=== PATIENT | female | born 1985 | race African-American/Black ===

== ENCOUNTER 2017-11-12 13:25 | Emergency (ER) | payer OTHER ==
[2017-11-12 13:39] VITALS: BP 125/82; PULSE 87; RESP 20; TEMP 100.8
--- NOTE | 2017-11-12 13:57 | ED ---
General Adult HPI - General Chief complaint: Fever Stated complaint: headache/congestion Time Seen by Provider: 11/12/17 13:47 Source: patient, RN notes reviewed Mode of arrival: ambulatory Limitations: no limitations - History of Present Illness Initial comments: Patient is a 32-year-old female who presents emergency room today with a chief complaint of cough congestion over the last 5 days. She doesn't body aches with fevers. Does admit to a sore throat. Does admit to increased rhinorrhea. She states that some the symptoms were present with her kids last week she's got the symptoms the last few days. Patient denies any other complaints. Patient denies any recent shortness of breath, chest pain, back pain, abdominal pain, nausea or vomiting, numbness or tingling, visual changes, or any other complaints. - Related Data Home Medications Medication Instructions Recorded Confirmed Acetaminophen Tab [Tylenol] 1,000 mg PO Q6H PRN 04/09/16 04/09/16 Famotidine [Pepcid AC] 10 mg PO DAILY PRN 04/09/16 04/09/16 Previous Rx's Medication Instructions Recorded Cephalexin [Keflex] 500 mg PO Q8HR #21 cap 04/09/16 Azithromycin [Zithromax Z-pack] 0 mg PO DIRECTED #6 tab 11/12/17 Allergies Allergy/AdvReac Type Severity Reaction Status Date / Time No Known Allergies Allergy Verified 11/12/17 13:39 Review of Systems ROS Statement: Those systems with pertinent positive or pertinent negative responses have been documented in the HPI. ROS Other: All systems not noted in ROS Statement are negative. Past Medical History Past Medical History: No Reported History Additional Past Medical History / Comment(s): mono History of Any Multi-Drug Resistant Organisms: None Reported Past Surgical History: Section Past Psychological History: Depression Smoking Status: Current every day smoker Past Alcohol Use History: Occasional Past Drug Use History: Marijuana General Exam - General Exam Comments Initial Comments: General: The patient is awake and alert, in no distress, and does not appear acutely ill. Eye: Pupils are equal, round and reactive to light, extra-ocular movements are intact. No nystagmus. There is normal conjunctiva bilaterally. No signs of icterus. Ears, nose, mouth and throat: There are moist mucous membranes and no oral lesions. Decreased bony landmarks on the left ear canal. Worse over the [place]. There is no substantial sinuses or frontal and maxillary. Increased redness to the posterior pharynx. Neck: The neck is supple, there is no tenderness or JVD. Cardiovascular: There is a regular rate and rhythm. No murmur, rub or gallop is appreciated. Respiratory: Lungs are clear to auscultation, respirations are non-labored, breath sounds are equal. No wheezes, stridor, rales, or rhonchi. Musculoskeletal: Normal ROM, no tenderness. Strength 5/5. Sensation intact. Pulses equal bilaterally 2+. Neurological: A&O x 3. CN II-XII intact, There are no obvious motor or sensory deficits. Coordination appears grossly intact. Speech is normal. Skin: Skin is warm and dry and no rashes or lesions are noted. Psychiatric: Cooperative, appropriate mood & affect, normal judgment. Limitations: no limitations Course Vital Signs 11/12/17 13:36 Temperature 100.8 F H Pulse Rate 87 Respiratory 20 Rate Blood Pressure 125/82 O2 Sat by Pulse 97 Oximetry Medical Decision Making - Medical Decision Making Patient does have low-grade fevers advised he is tall/Motrin for aches and pains. Was discussed with patient about possibility of influenza at this time she is outside the treatment range for Tamiflu. Patient does have possible early otitis media with sinus infection. Will be started on antibiotics cover for bacterial infection. Does have ALLERGY to penicillin. Will be given a prescription for azithromycin. Disposition Clinical Impression: Acute sinusitis Disposition: HOME SELF-CARE Condition: Good Instructions: Sinusitis (ED) Additional Instructions: Please use medication as discussed. Please follow-up with family doctor in the next 2 days of symptoms have not improved. Please return to emergency room if the symptoms increase or worsen or for any other concerns. Prescriptions: Azithromycin [Zithromax Z-pack] 0 mg PO DIRECTED #6 tab Referrals: Viet Domingo MD [Primary Care Provider] - 1-2 days Time of Disposition: 13:56
== END 2017-11-12 14:05 | disposition home or self-care (01) ==
LOC: EC 13:25
DX: J01.90 Acute sinusitis, unspecified (principal); F17.200 Nicotine dependence, unspecified, uncomplicated
CPT/HCPCS: 87081; 87430; 87502; 99283

== ENCOUNTER → 2018-02-28 | Outpatient (CLI) | payer OTHER ==
--- NOTE | 2018-02-28 15:31 | CT ---
EXAMINATION TYPE: CT abdomen pelvis w con DATE OF EXAM: 02/28/2018 HISTORY: RLQ and right sided back pain CT DLP: 781.3mGycm Automated Exposure Control for Dose Reduction was Utilized. CONTRAST: CT scan of the abdomen and pelvis is performed with IV Contrast, patient injected with 100 mL of Isov ue 300. COMPARISON: Pelvic ultrasound August 19, 2015 FINDINGS: LUNG BASES: No significant abnormality is appreciated. LIVER/GB: Somewhat contracted gallbladder is seen. PANCREAS: No significant abnormality is seen. SPLEEN: No significant abnormality is seen. ADRENALS: No significant abnormality is seen. KIDNEYS: No significant abnormality is seen. Bowel: Oral contrast does not reach colonic level. There is no suspicious small or large bowel dilata tion. Normal-appearing appendix is seen best coronal image 41 in 42 extending medially from cecum. Ev aluation of distal bowel is suboptimal due to lack of enteric contrast. Suspect bowel spasm causing n arrowing of sigmoid colon axial image 70 as well as poor distention of bowel in the left upper quadra nt near splenic flexure. UTERUS/ADNEXA: Anteverted uterus is present. There is abnormal left ovarian/adnexal mass measuring 2. 3 x 2.1 cm axial image 74 that has fat and soft tissue density with some inferior calcification noted coronal image 56. Some scattered pelvic phleboliths are seen. Right ovary is normal in size. There i s rim hyperdense or enhancing 1.6 cm lesion felt to reflect corpus luteal cyst from recent ovulation axial image 72. LYMPH NODES: No greater than 1cm abdominal or pelvic lymph nodes are appreciated. OSSEOUS STRUCTURES: No significant abnormality is seen. OTHER: There is moderate size umbilical hernia containing fat and tiny mesenteric vessels. IMPRESSION: 1. No significant acute finding is seen to account for patient's clinical symptoms of right lower isha drant and right-sided pain into back. 2. Note is made of new 2.3 cm left ovarian mass with CT imaging characteristics consistent with terat burak. Gynecology oncology referral advised.
== END ==
LOC: RADCTMAIN 13:06
PROVIDERS: ATTEND Family Medicine
DX: N83.9 Noninflammatory disorder of ovary, fallopian tube and broad ligament, unspecified (principal); R10.30 Lower abdominal pain, unspecified; Z88.5 Allergy status to narcotic agent
CPT/HCPCS: 74177; Q9967

== ENCOUNTER → 2024-06-19 | Outpatient (CLI) | payer MEDICARE ==
--- NOTE | 2024-06-28 14:10 | MM ---
Reason for Exam: Screening (asymptomatic). Baseline mammogram. Patient History: Menarche at age 9. First Full-Term at age 14. Premenopausal. Maternal aunt had ovarian cancer. Maternal aunt had ovarian cancer. Last menstrual period: 06/05/2024 Risk Values: Ruma 5 year model risk: 0.6%. NCI Lifetime model risk: 9.6%. Prior Study Comparison: Patient's first Mammogram. Tissue Density: The breasts are heterogeneously dense, which may obscure small masses. Findings: Analyzed By CAD. The pattern is asymmetrically with greater parenchymal tissue on the right compared to the left. There may be a small nodule with medial anterior right breast. Additional workup with ultrasound recommended. This measures 0.5 cm and is 3 cm from the nipple. No suspicious groups of microcalcifications, spiculated or lobular masses, architectural distortion or other secondary signs of malignancy are mammographically apparent. Overall Assessment: Incomplete: need additional imaging evaluation, BI-RAD 0 Management: Diagnostic Breast Ultrasound of the right breast. A negative mammogram report should not preclude additional follow up of suspicious palpable abnormalities. Patient should continue monthly self breast exam. A clinical breast exam by your physician is recommended on an annual basis and results should be correlated with mammographic findings. Note on Ruma scores and lifetime risk: 1. A Ruma score greater than 3% is considered moderate risk. If this is the case, consider specialist referral to assess eligibility for a risk reducing agent. 2. If overall lifetime risk for the development of breast cancer is 20% or higher, the patient may qualify for future screening with alternating mammogram and breast MRI. [facility], , 06/28/2024 2:07 PM. Electronically signed and approved by: Panchito Carolina D.O. Radiologis
== END | disposition home or self-care (01) ==
LOC: RADMAMWWP 12:29
PROVIDERS: ATTEND Family Medicine
CPT/HCPCS: 77067

== ENCOUNTER → 2024-09-03 | Outpatient (CLI) | payer MEDICARE ==
--- NOTE | 2024-09-03 14:01 | CT ---
EXAMINATION TYPE: CT chest wo/w con CT DLP: 742.8 mGycm, Automated exposure control for dose reduction was used. DATE OF EXAM: 09/03/2024 1:44 PM COMPARISON: CT abdomen pelvis 02/28/2018 CLINICAL INDICATION:Female, 39 years old with history of R06.02 SOB R05.3 COUGH; PHH, COUGH TECHNIQUE: Multiple axial images were obtained through the chest before and after the uneventful admi nistration of 100 mL of Isovue-370 intravenously . Coronal and sagittal reformats reviewed. FINDINGS: LUNGS/ PLEURA: No effusion, pneumothorax, or focal consolidation. No suspicious pulmonary nodule or m ass. Minimal bilateral apical paraseptal emphysematous change. AIRWAY: Patent and unremarkable.. HEART: Size within normal limits.No pericardial effusion. MEDIASTINUM: No evidence of adenopathy. VASCULATURE: No aortic aneurysm. MUSCULOSKELETAL: No acute osseous abnormalities SOFT TISSUES/LYMPH NODES: Unremarkable. LOWER NECK: No significant findings. UPPER ABDOMEN: Tiny hiatal hernia. Left renal upper pole partially exophytic 2.1 cm cyst. IMPRESSION: 1. No CT evidence for acute thoracic process. 2. Minimal biapical paraseptal emphysematous change. [facility], , 09/03/2024 1:59 PM
== END | disposition home or self-care (01) ==
LOC: RADCTMAIN 13:15
PROVIDERS: ATTEND Family Medicine
DX: R06.02 Shortness of breath (principal); R05.3 Chronic cough; K44.9 Diaphragmatic hernia without obstruction or gangrene
CPT/HCPCS: 71270; Q9967

== ENCOUNTER 2024-10-04 11:40 | Inpatient (IN) | payer MEDICARE ==
--- NOTE | 2024-10-04 12:05 | ED ---
Abdominal Pain HPI - General Stated Complaint: HERNIA Time Seen by Provider: 10/04/24 12:04 Source: patient, RN notes reviewed Mode of arrival: ambulatory Limitations: no limitations - History of Present Illness Initial Comments: Patient is a 39-year-old female presented the ER for evaluation of abdominal pain. Patient states she has a known hernia in the area of concern and has been evaluated at [facility] for this. She was told this is benign and as long as she can continue to reduce this it can be worked up outpatient. Patient states for the past month she has had a persistent cough. She has been seen by PCP and prescribed steroids, Tessalon Perles, azithromycin without improvement. She also has been using [id number] DayQuil, NyQuil and Robit ussin without relief of her cough. Patient reports when she gets a coughing fit the hernia will protrude and enlarge she is typically able to reduce this on her own but since Saturday has been unable to do so. This has been causing her extreme pain and she is also noted bruising to the overlying skin. Patient admits to flatulence and normal bowel movements. She does report yesterday her stool was "loose". She admits to nausea and vomiting but states this is believed to be from pain. No fevers. No history of bowel resections or surgeries. - Related Data Home Medications Medication Instructions Recorded Confirmed Pantoprazole [Protonix] 40 mg PO DAILY 10/04/24 10/04/24 hydrOXYzine HCL [Atarax] 25 mg PO TID PRN 10/04/24 10/04/24 Allergies Allergy/AdvReac Type Severity Reaction Status Date / Time Penicillins Allergy Unknown Verified 10/04/24 16:38 Review of Systems ROS Statement: Those systems with pertinent positive or pertinent negative responses have been documented in the HPI. ROS Other: All systems not noted in ROS Statement are negative. Past Medical History Past Medical History: No Reported History Additional Past Medical History / Comment(s): mono History of Any Multi-Drug Resistant Organisms: None Reported Past Surgical History: Section Past Psychological History: Depression Past Alcohol Use History: Occasional Past Drug Use History: Marijuana General Exam - General Exam Comments Initial Comments: Visual Physical Exam Vital signs reviewed General: Well-appearing, nontoxic, no acute distress. Head: Normocephalic, atraumatic Eyes: PERRLA, EOMI ENT: Airway patent Chest: Nonlabored breathing Skin: No visual rash, normal skin tone Neuro: Alert and oriented 3 Musculoskeletal: No gross abnormalities Limitations: no limitations General appearance: alert, in no apparent distress Respiratory exam: Present: normal lung sounds bilaterally. Absent: respiratory distress, wheezes, rales, rhonchi, stridor Cardiovascular Exam: Present: regular rate, normal rhythm, normal heart sounds. Absent: systolic murmur, diastolic murmur, rubs, gallop, clicks GI/Abdominal exam: Present: soft, normal bowel sounds, hernia (Superior umbilical. Area is tender and hard to touch. Minimal discoloration overlying) Neurological exam: Present: alert, oriented X3, CN II-XII intact Skin exam: Present: warm, dry, intact, normal color. Absent: rash Course Vital Signs 10/04/24 10/04/24 10/04/24 12:10 14:15 15:08 Temperature 98.8 F 99.2 F 98.5 F Pulse Rate 82 85 95 Respiratory 16 20 20 Rate Blood Pressure 119/76 128/87 122/74 O2 Sat by Pulse 99 94 L 94 L Oximetry 10/04/24 10/04/24 10/04/24 15:09 17:05 18:25 Temperature 97.6 F 97.7 F Pulse Rate 64 94 Respiratory 16 20 Rate Blood Pressure 119/75 123/84 O2 Sat by Pulse 95 100 97 Oximetry 10/04/24 20:00 Temperature 97.8 F Pulse Rate 89 Respiratory 16 Rate Blood Pressure 111/85 O2 Sat by Pulse 97 Oximetry Medical Decision Making - Medical Decision Making I performed the quick note portion of this chart. Electronically signed by Amita Menon PA-C Was pt. sent in by a medical professional or institution (VIVIAN Ritter, HAND MITER OPERATOR, urgent care, hospital, or long-term...) When possible be specific @ -No Did you speak to anyone other than the patient for history (EMS, parent, family, police, friend...)? What history was obtained from this source @ -No Did you review nursing and triage notes (agree or disagree)? Why? @ -I reviewed and agree with nursing and triage notes Were old charts reviewed (outside hosp., previous admission, EMS record, old EKG, old radiological studies, urgent care reports/EKG's, long-term records)? Report findings @ -No old charts were reviewed Differential Diagnosis (chest pain, altered mental status, abdominal pain women, abdominal pain men, vaginal bleeding, weakness, fever, dyspnea, syncope, headache, dizziness, GI bleed, back pain, seizure, CVA, palpatations, mental health, musculoskeletal)? @ -Differential Abdominal Pain Women:Appendicitis, Cholecystitis, diverticulosis, ischemic bowel, pancreatitis, hepatitis, UTI, gastroenteritis, AAA, incarcerated hernia, bowel obstruction, constipation, inflammatory bowel, hepatitis, peptic ulcer disease, splenic infarction, perforated viscus, vulvitis, ovarian torsion, PID, kidney stone, placenta abruption, this is not meant to be an all-inclusive list EKG interpreted by me (3pts min.). @ -None done X-rays interpreted by me (1pt min.). @ -CXR interpreted me negative for focal consolidations. CT interpreted by me (1pt min.). @ -CT abdomen pelvis showing a ventral wall fat-containing hernia with evidence of omental strangulation with fat stranding and trace free fluid. More inferior fat-containing umbilical hernia. Hepatic steatosis. Left ovarian fat-containing lesion most compatible with dermoid. Simple left renal cyst. U/S interpreted by me (1pt. min.). @ -None done What testing was considered but not performed or refused? (CT, X-rays, U/S, labs)? Why? @ -None What meds were considered but not given or refused? Why? @ -None Did you discuss the management of the patient with other professionals (professionals i.e. , PA, HAND MITER OPERATOR, lab, RT, psych nurse, social security specialist, cook 3 pastry, teacher, surveillance officer, case preparer and liner)? Give summary @ -Yes, case discussed with on-call general surgery, Dr. Ivey. He is agreeable for pain control admission. No emergent surgical intervention at this time. Was smoking cessation discussed for >3mins.? @ -No Was critical care preformed (if so, how long)? @ -No Were there social determinants of health that impacted care today? How? (Homelessness, low income, unemployed, alcoholism, drug addiction, transportation, low edu. Level, literacy, decrease access to med. care, skilled nursing, rehab)? @ -No Was there de-escalation of care discussed even if they declined (Discuss DNR or withdrawal of care, Hospice)? DNR status @ -No What co-morbidities impacted this encounter? (DM, HTN, Smoking, COPD, CAD, Cancer, CVA, ARF, Chemo, Hep., AIDS, mental health diagnosis, sleep apnea, morbid obesity)? @ -None Was patient admitted / discharged? Hospital course, mention meds given and route, prescriptions, significant lab abnormalities, going to OR and other pertinent info. @ -Admitted. 39-year-old female presented the ER for evaluation of abdominal pain. Upon rooming, history and physical exam completed. Vitals within normal limits. Patient in no signs of acute distress. Exam remarkable for a superior to umbilical hernia that is not able to be reduced. Area is extremely tender to touch. Laboratory studies obtained showed a WBC of 10.0, hemoglobin 11.5, lactic 1.8. Viral swabs negative. CT abdomen pelvis showing a ventral wall fat-containing hernia with evidence of omental strangulation with fat stranding and trace free fluid. Patient given symptomatic control with IV fluids, Toradol, Dilaudid and Zofran. P.o. Tessalon Perles for cough given. Attempted reduction performed after pain medication with minor improvement of size. Given concern of pain management outpatient, case was discussed with on-call general surgery, Dr. Ivey, who is agreeable for pain control admission. He advises a gainst emergent surgical intervention. Patient is agreeable for admission. Case discussed with the attending, Dr. Vargas. Undiagnosed new problem with uncertain prognosis? @ -No Drug Therapy requiring intensive monitoring for toxicity (Heparin, Nitro, Insulin, Cardizem)? @ -No Were any procedures done? @ -No Diagnosis/symptom? @ -Ventral hernia with omental strangulation Acute, or Chronic, or Acute on Chronic? @ -Acute Uncomplicated (without systemic symptoms) or Complicated (systemic symptoms)? @ -Uncomplicated Side effects of treatment? @ -No Exacerbation, Progression, or Severe Exacerbation? @ -No Poses a threat to life or bodily function? How? (Chest pain, [place], [place], pneumonia, PE, COPD, DKA, ARF, appy, cholecystitis, CVA, Diverticulitis, Homicidal, Suicidal, threat to staff... and all critical care pts) @ -Yes, hernia can lead to bowel obstruction. - Lab Data Result diagrams: 10/04/24 12:44 10/04/24 12:44 Lab Results 10/04/24 10/04/24 10/04/24 Range/Units 12:44 12:44 12:44 WBC 10.0 (3.8-10.6) k/uL RBC 4.59 (3.80-5.40) m/uL Hgb 11.5 (11.4-16.0) gm/dL Hct 36.9 (34.0-46.0) % MCV 80.5 (80.0-100.0) fL MCH 25.2 (25.0-35.0) pg MCHC 31.3 (31.0-37.0) g/dL RDW 18.5 H (11.5-15.5) % Plt Count 475 H (150-450) k/uL MPV 8.0 Neutrophils % 55 % Lymphocytes % 21 % Monocytes % 4 % Eosinophils % 18 % Basophils % 1 % Neutrophils # 5.5 (1.3-7.7) k/uL Lymphocytes # 2.1 (1.0-4.8) k/uL Monocytes # 0.4 (0-1.0) k/uL Eosinophils # 1.8 H (0-0.7) k/uL Basophils # 0.1 (0-0.2) k/uL Hypochromasia Marked Anisocytosis Slight Microcytosis Slight Sodium 141 (137-145) mmol/L Potassium 3.9 (3.5-5.1) mmol/L Chloride 104 (98-107) mmol/L Carbon Dioxide 26 (22-30) mmol/L Anion Gap 11 mmol/L BUN 7 (7-17) mg/dL Creatinine 0.66 (0.52-1.04) mg/dL Est GFR (CKD-EPI)AfAm >90 (>60 ml/min/1.73 sqM) Est GFR (CKD-EPI)NonAf >90 (>60 ml/min/1.73 sqM) Glucose 117 H (74-99) mg/dL Plasma Lactic Acid German 1.8 (0.7-2.0) mmol/L Calcium 10.1 (8.4-10.2) mg/dL Total Bilirubin 0.9 (0.2-1.3) mg/dL AST 62 H (14-36) U/L ALT 79 H (4-34) U/L Alkaline Phosphatase 91 (38-126) U/L Total Protein 9.0 H (6.3-8.2) g/dL Albumin 4.9 (3.5-5.0) g/dL Amylase 43 (30-110) U/L Lipase 62 (23-300) U/L Urine Color Urine Appearance (Clear) Urine pH (5.0-8.0) Ur Specific [place] (1.001-1.035) Urine Protein (Negative) Urine Glucose (UA) (Negative) Urine Ketones (Negative) Urine Blood (Negative) Urine Nitrite (Negative) Urine Bilirubin (Negative) Urine Urobilinogen (<2.0) mg/dL Ur Leukocyte Esterase (Negative) Urine RBC (0-5) /hpf Urine WBC (0-5) /hpf Ur Squamous Epith Cells (0-4) /hpf Urine Mucus (None) /hpf Urine HCG, Qual (Not Detectd) Influenza Type A (PCR) (Not Detectd) Influenza Type B (PCR) (Not Detectd) RSV (PCR) (Not Detectd) SARS-CoV-2 (PCR) (Not Detectd) 10/04/24 10/04/24 10/04/24 Range/Units 14:20 17:00 17:00 WBC (3.8-10.6) k/uL RBC (3.80-5.40) m/uL Hgb (11.4-16.0) gm/dL Hct (34.0-46.0) % MCV (80.0-100.0) fL MCH (25.0-35.0) pg MCHC (31.0-37.0) g/dL RDW (11.5-15.5) % Plt Count (150-450) k/uL MPV Neutrophils % % Lymphocytes % % Monocytes % % Eosinophils % % Basophils % % Neutrophils # (1.3-7.7) k/uL Lymphocytes # (1.0-4.8) k/uL Monocytes # (0-1.0) k/uL Eosinophils # (0-0.7) k/uL Basophils # (0-0.2) k/uL Hypochromasia Anisocytosis Microcytosis Sodium (137-145) mmol/L Potassium (3.5-5.1) mmol/L Chloride (98-107) mmol/L Carbon Dioxide (22-30) mmol/L Anion Gap mmol/L BUN (7-17) mg/dL Creatinine (0.52-1.04) mg/dL Est GFR (CKD-EPI)AfAm (>60 ml/min/1.73 sqM) Est GFR (CKD-EPI)NonAf (>60 ml/min/1.73 sqM) Glucose (74-99) mg/dL Plasma Lactic Acid German (0.7-2.0) mmol/L Calcium (8.4-10.2) mg/dL Total Bilirubin (0.2-1.3) mg/dL AST (14-36) U/L ALT (4-34) U/L Alkaline Phosphatase (38-126) U/L Total Protein (6.3-8.2) g/dL Albumin (3.5-5.0) g/dL Amylase (30-110) U/L Lipase (23-300) U/L Urine Color Light Red Urine Appearance Cloudy H (Clear) Urine pH 6.0 (5.0-8.0) Ur Specific [place] >1.050 H (1.001-1.035) Urine Protein 1+ H (Negative) Urine Glucose (UA) Negative (Negative) Urine Ketones Trace H (Negative) Urine Blood Large H (Negative) Urine Nitrite Negative (Negative) Urine Bilirubin Negative (Negative) Urine Urobilinogen 2.0 (<2.0) mg/dL Ur Leukocyte Esterase Trace H (Negative) Urine RBC >182 H (0-5) /hpf Urine WBC 4 (0-5) /hpf Ur Squamous Epith Cells 16 H (0-4) /hpf Urine Mucus Rare H (None) /hpf Urine HCG, Qual Not Detected (Not Detectd) Influenza Type A (PCR) Not Detected (Not Detectd) Influenza Type B (PCR) Not Detected (Not Detectd) RSV (PCR) Not Detected (Not Detectd) SARS-CoV-2 (PCR) Not Detected (Not Detectd) - Radiology Data Radiology results: report reviewed, image reviewed Disposition Clinical Impression: Ventral hernia Disposition: ADMITTED IP TO THIS [facility] Condition: Stable Referrals: Viet Domingo MD [Primary Care Provider] - 1-2 days Time of Disposition: 15:55
[2024-10-04 13:08] LABS: ALT 79 U/L (4-34); AST 62 U/L (14-36); African American GFR (CKD) >90 (>60 ml/min/1.73 sqM); Albumin 4.9 g/dL (3.5-5.0); Alkaline Phosphatase 91 U/L (38-126); Amylase 43 U/L (30-110); Anion Gap 11 mmol/L; Blood Urea Nitrogen 7 mg/dL (7-17); Calcium 10.1 mg/dL (8.4-10.2); Carbon Dioxide 26 mmol/L (22-30); Chloride 104 mmol/L (98-107); Glucose 117 mg/dL (74-99); Lipase 62 U/L (23-300); Non-African American GFR(CKD) >90 (>60 ml/min/1.73 sqM); Potassium 3.9 mmol/L (3.5-5.1); Sodium 141 mmol/L (137-145); Total Bilirubin 0.9 mg/dL (0.2-1.3)
[2024-10-04 13:38] LABS: Anisocytosis Slight; Basophils # (A) 0.1 k/uL (0-0.2); Basophils % (A) 1 %; Eosinophils # (A) 1.8 k/uL (0-0.7); Eosinophils % (A) 18 %; HCT 36.9 % (34.0-46.0); HGB 11.5 gm/dL (11.4-16.0); Hypochromasia Marked; Lymphocytes # (A) 2.1 k/uL (1.0-4.8); Lymphocytes % (A) 21 %; MCH 25.2 pg (25.0-35.0); MCHC 31.3 g/dL (31.0-37.0); MCV 80.5 fL (80.0-100.0); Microcytosis Slight; Monocytes # (A) 0.4 k/uL (0-1.0); Monocytes % (A) 4 %; Neutrophils # (A) 5.5 k/uL (1.3-7.7); Neutrophils % (A) 55 %; Platelet Count 475 k/uL (150-450); RBC 4.59 m/uL (3.80-5.40); RDW 18.5 % (11.5-15.5)
--- NOTE | 2024-10-04 13:39 | XR ---
EXAMINATION TYPE: XR chest 2V DATE OF EXAM: 10/04/2024 1:31 PM COMPARISON: Chest radiographs from 01/30/2015 CLINICAL INDICATION: Female, 39 years old with history of cough; TECHNIQUE: XR chest 2V Frontal and lateral views of the chest. FINDINGS: Lungs/Pleura: There is no evidence of pleural effusion, focal consolidation, or pneumothorax. Pulmonary vascularity: Unremarkable. Heart/mediastinum: Cardiomediastinal silhouette is unremarkable. Musculoskeletal: No acute osseous pathology. IMPRESSION: No acute cardiopulmonary disease/process. [facility], , 10/04/2024 1:37 PM
--- NOTE | 2024-10-04 13:44 | CT ---
EXAMINATION TYPE: CT abdomen pelvis w con DATE OF EXAM: 10/04/2024 1:31 PM COMPARISON: CT abdomen pelvis most recent from 03/19/2018 CLINICAL INDICATION: Female, 39 years old with history of umbilical hernia pain; Umbilical hernia rob n TECHNIQUE: Axial CT abdomen pelvis w con;Sagittal and coronal reformats were created on a separate w orkstation. Contrast used:100 mL of Isovue 300 with IV Contrast, (none if empty) Oral contrast used: without Oral Contrast (none if empty) CT DLP: 1271.2 mGycm, Automated exposure control for dose reduction was used. FINDINGS: LOWER CHEST: Unremarkable ABDOMEN LIVER: Diffusely hypoattenuating parenchyma. GALLBLADDER AND BILE DUCTS: Unremarkable. PANCREAS: Unremarkable. SPLEEN: Unremarkable. ADRENAL GLANDS: Unremarkable. KIDNEYS AND URETERS: No evidence of hydronephrosis or renal calculus. The ureters are unremarkable. Left renal probable cyst. PELVIS BLADDER: No evidence for wall thickening or mass given limitations of exam. REPRODUCTIVE: Left ovarian fat-containing lesion measuring 24 x 24 mm. Thin septation within this les ion noted. ABDOMEN & PELVIS STOMACH AND BOWEL: No evidence of bowel obstruction. PERITONEUM/RETROPERITONEUM: No evidence of pneumoperitoneum or free fluid. VASCULATURE: No evidence of aortic aneurysm. MUSCULOSKELETAL: No acute osseous abnormalities LYMPH NODES: No gross evidence for lymphadenopathy. SOFT TISSUE/ABDOMINAL WALL: Fat-containing ventral wall hernia with fat stranding and some fluid. Thi s measures up to 34 x 42 mm at the neck. This is increased in size from 2018. There is a fat-containi ng umbilical hernia in close proximity to this larger ventral hernia. IMPRESSION: 1. Ventral wall fat-containing hernia with evidence of omental strangulation with fat stranding and trace free fluid. Additional more inferior fat-containing umbilical hernia. 2. Hepatic steatosis. 3. Left ovarian fat-containing lesion most compatible with dermoid. 4. Simple left renal cyst. [facility], , 10/04/2024 1:42 PM
[2024-10-04] MEDS: ONDANSETRON 4 MG/2 ML VIAL IVP STA (14:07)
[2024-10-04] MEDS: KETOROLAC 15 MG/ML 1 ML VIAL IVP STA (14:14)
[2024-10-04] MEDS: SODIUM CHLORIDE 0.9% 1,000 ML IV STA (14:16)
[2024-10-04] MEDS: HYDROmorphone 1 MG/ML 1 ML SYRINGE IVP STA (14:16)
[2024-10-04] MEDS: HYDROmorphone 0.5 MG/0.5 ML SYRINGE IVP STA (15:10)
[2024-10-04] MEDS: BENZONATATE 100 MG CAP PO STA (15:11)
[2024-10-04 15:19] LABS: Influenza A Not Detected (Not Detectd); Influenza B Not Detected (Not Detectd); RSV Not Detected (Not Detectd)
[2024-10-04] MEDS ORDERED: NALOXONE 0.4 MG/ML 1 ML VIAL IV PRN (15:57)
[2024-10-04] MEDS: SODIUM CHLORIDE 0.9% 1,000 ML IV SCH (17:06)
[2024-10-04 17:26] LABS: Appearance,Urine Cloudy (Clear); Bilirubin,Urine Negative (Negative); Blood,Urine Large (Negative); Color,Urine Light Red; Glucose,Urine (UA) Negative (Negative); Ketones,Urine Trace (Negative); Leukocyte Esterase,Urine Trace (Negative); Mucus,Urine Rare /hpf; Nitrite,Urine Negative (Negative); Protein,Urine 1+ (Negative); RBC,Urine >182 /hpf (0-5); Squamous Epithelial Cell,Urine 16 /hpf (0-4); WBC,Urine 4 /hpf (0-5)
[2024-10-04 17:36] LABS: Specific Gravity,Urine >1.050 (1.001-1.035)
[2024-10-04] MEDS: hydrOXYzine HCL 25 MG TAB PO PRN (17:48)
[2024-10-04] MEDS: KETOROLAC 15 MG/ML 1 ML VIAL IVP PRN (18:27)
[2024-10-05] MEDS: BENZONATATE 100 MG CAP PO STA (00:14)
[2024-10-05] MEDS: HYDROmorphone 1 MG/ML 1 ML SYRINGE IVP PRN (00:21)
[2024-10-05] MEDS: PANTOPRAZOLE 40 MG TABLET PO SCH (08:51)
--- NOTE | 2024-10-05 15:34 | P.GSHP ---
History of Present Illness H&P Date: 10/05/24 CHIEF COMPLAINT: Ventral hernia pain HISTORY OF PRESENT ILLNESS: This is a 39-year-old female who presented to the hospital with complaints of pain at her ventral hernia site. Patient reports she has had a ventral hernia for 18 years. However, since evening patient has had the significant cough. She reports that she was coughing and the hernia protruded out. She has been unable to reduce it. She came into the ER for further evaluation. She initially was having flatus this is now stopped. Her last bowel movement was on Saturday. She does report nausea no vomiting. She was able to eat breakfast this morning. CT scan of the abdomen and pelvis reported ventral wall fat-containing hernia with evidence of omental strangulation with fat stranding and trace free fluid. Additional more inferior fat-containing umbilical hernia. Past surgical history includes . Patient denies being on any blood thinners. PAST MEDICAL HISTORY: See below PAST SURGICAL HISTORY: See below MEDICATIONS: See below ALLERGIES: See below SOCIAL HISTORY: No illicit drug use. Continue dependence REVIEW OF SYSTEMS: CONSTITUTIONAL: Denies fever or chills. HEENT: Denies blurred vision, vision changes, or eye pain. Denies hemoptysis CARDIOVASCULAR: Denies chest pain or pressure. RESPIRATORY: No shortness of breath. GASTROINTESTINAL: See HPI for pertinent findings HEMATOLOGIC: Denies bleeding disorders. GENITOURINARY: Denies any blood in urine or increased urinary frequency. SKIN: Denies pruitis. Denies rash. PHYSICAL EXAM: VITAL SIGNS: Reviewed GENERAL: Well-developed in no acute distress. HEENT: No sclera icterus. Extraocular movements grossly intact. Moist buccal mucosa. Head is atraumatic, normocephalic. No nasal drainage. ABDOMEN: Soft. Nondistended. Tenderness with palpation of ventral hernia above the umbilicus. Hernia is not reducible. Mild erythema noted. NEUROLOGIC: Alert and oriented. Cranial nerves II through XII grossly intact. LABORATORY DATA: WBC is 10 Hgb 11.5 platelets 475 Sodium 141 potassium 3.9 creatinine 0.66 Total bilirubin 0.9 AST 62 ALT 79 alk phos 91 IMAGING: Chest x-ray no acute cardiopulmonary disease CT scan abdomen pelvis reports ventral wall fat-containing hernia with evidence of omental strangulation with fat stranding and trace free fluid. Additional more inferior fat-containing umbilical hernia. Hepatic steatosis. Left ovarian fat-containing lesion most compatible with dermoid. Simple left renal cyst. ASSESSMENT: 1. Ventral wall hernia containing fat and evidence of omental strangulation PLAN: -Patient scheduled for laparoscopic ventral hernia repair with mesh tomorrow with Dr. Loni Rubinpeddy after midnight Physician Water Project Engineer note has been reviewed by physician. Signing provider agrees with the documented findings, assessment, and plan of care. Past Medical History Past Medical History: No Reported History Additional Past Medical History / Comment(s): mono History of Any Multi-Drug Resistant Organisms: None Reported Past Surgical History: Section Past Psychological History: Depression Past Alcohol Use History: Occasional Past Drug Use History: Marijuana Medications and Allergies Home Medications Medication Instructions Recorded Confirmed Type Pantoprazole [Protonix] 40 mg PO DAILY 10/04/24 10/04/24 History hydrOXYzine HCL [Atarax] 25 mg PO TID PRN 10/04/24 10/04/24 History Allergies Allergy/AdvReac Type Severity Reaction Status Date / Time Penicillins Allergy Unknown Verified 10/04/24 16:38 Surgical - Exam Vital Signs Temp Pulse Resp BP Pulse Ox 98.8 F 82 16 119/76 99 10/04/24 12:10 10/04/24 12:10 10/04/24 12:10 10/04/24 12:10 10/04/24 12:10 Results - Labs 10/04/24 12:44 10/04/24 12:44 Abnormal Lab Results - Last 24 Hours (Table) 10/04/24 10/04/24 Range/Units 12:44 17:00 RDW 18.5 H (11.5-15.5) % Plt Count 475 H (150-450) k/uL Eosinophils # 1.8 H (0-0.7) k/uL Urine Appearance Cloudy H (Clear) Ur Specific [place] >1.050 H (1.001-1.035) Urine Protein 1+ H (Negative) Urine Ketones Trace H (Negative) Urine Blood Large H (Negative) Ur Leukocyte Esterase Trace H (Negative) Urine RBC >182 H (0-5) /hpf Ur Squamous Epith Cells 16 H (0-4) /hpf Urine Mucus Rare H (None) /hpf
[2024-10-05] MEDS: BENZONATATE 100 MG CAP PO PRN (17:36)
[2024-10-05] MEDS: ONDANSETRON 4 MG/2 ML VIAL IVP PRN (18:33)
[2024-10-05] MEDS: FLUTICASONE NASAL 50MCG/SPRAY 16GM BTL EA NOSTRIL PRN (22:22)
[2024-10-05] MEDS: guaiFENesin SYRUP 100MG/5ML 200 MG/10 ML CUP PO PRN (22:23)
[2024-10-06] MEDS: ACETAMINOPHEN TAB 325 MG TAB PO PRN (00:36)
[2024-10-06 04:52] LABS: African American GFR (CKD) >90 (>60 ml/min/1.73 sqM); Anion Gap 4 mmol/L; Blood Urea Nitrogen 5 mg/dL (7-17); Calcium 9.1 mg/dL (8.4-10.2); Carbon Dioxide 32 mmol/L (22-30); Chloride 101 mmol/L (98-107); Glucose 109 mg/dL (74-99); Non-African American GFR(CKD) >90 (>60 ml/min/1.73 sqM); Sodium 137 mmol/L (137-145)
[2024-10-06 04:54] LABS: Anisocytosis Slight; Basophils # (A) 0.1 k/uL (0-0.2); Basophils % (A) 1 %; Eosinophils # (A) 1.9 k/uL (0-0.7); Eosinophils % (A) 20 %; Hypochromasia Marked; Lymphocytes # (A) 2.2 k/uL (1.0-4.8); Lymphocytes % (A) 23 %; MCH 24.8 pg (25.0-35.0); MCHC 29.8 g/dL (31.0-37.0); MCV 83.4 fL (80.0-100.0); Mean Platelet Volume 7.2; Monocytes # (A) 0.5 k/uL (0-1.0); Monocytes % (A) 5 %; Neutrophils # (A) 4.9 k/uL (1.3-7.7); Neutrophils % (A) 50 %; Platelet Count 404 k/uL (150-450); RBC 3.84 m/uL (3.80-5.40); RDW 18.8 % (11.5-15.5); WBC 9.7 k/uL (3.8-10.6)
[2024-10-06 05:45] LABS: HGB 9.5 gm/dL (11.4-16.0)
[2024-10-06 09:06] LABS: Anisocytosis Slight; HGB 9.5 gm/dL (11.4-16.0); Hypochromasia Marked; MCH 24.7 pg (25.0-35.0); MCHC 29.7 g/dL (31.0-37.0); MCV 83.2 fL (80.0-100.0); Mean Platelet Volume 7.5; Platelet Count 400 k/uL (150-450); RBC 3.84 m/uL (3.80-5.40); RDW 18.9 % (11.5-15.5); WBC 10.2 k/uL (3.8-10.6)
[2024-10-06] MEDS: IV FLUID CONTINUATION 1,000 ML IV ONE ×2 (15:33→19:40)
[2024-10-06] MEDS: HEPARIN SODIUM,PORCINE 5,000 UNIT/ML 1 ML VIAL SQ STA (16:28)
[2024-10-06] MEDS: DEXAMETHASONE SOD PHOSPHATE 4 MG/ML 1 ML VIAL IVP STA (16:28)
[2024-10-06] MEDS ORDERED: MIDAZOLAM 2 MG/2 ML VIAL ONE (16:42)
[2024-10-06] MEDS: SODIUM CHLORIDE 0.9% 50 ML with ceFAZolin 2 GM IV ONE (16:42)
[2024-10-06] MEDS ORDERED: NEOSTIGMINE 1 MG/ML 10 ML VIAL ONE (16:42)
[2024-10-06] MEDS ORDERED: GLYCOPYRROLATE 0.2 MG/ML 2 ML VIAL ONE (16:42)
[2024-10-06] MEDS ORDERED: ROCURONIUM 10 MG/ML (5 ML VIAL) IV ONE (16:42)
[2024-10-06] MEDS ORDERED: KETOROLAC 15 MG/ML 1 ML VIAL ONE (16:42)
[2024-10-06] MEDS ORDERED: ONDANSETRON 4 MG/2 ML VIAL ONE (16:42)
[2024-10-06] MEDS ORDERED: fentaNYL (PF) 50 MCG/ML 2 ML AMP ONE (16:42)
[2024-10-06] MEDS ORDERED: PROPOFOL 10 MG/ML 20 ML VIAL IV ONE (16:42)
[2024-10-06] MEDS: HYDROmorphone 0.5 MG/0.5 ML SYRINGE IVP STA (18:26)
[2024-10-06] MEDS: LACTATED RINGERS 1,000 ML BAG IV STA (19:01)
--- NOTE | 2024-10-06 23:27 | P.OP ---
Date of Procedure: 10/06/24 Preoperative Diagnosis: Incarcerated Ventral Hernia Postoperative Diagnosis: 1. Incarcerated Ventral Hernia 2. Incarcerated Umbilical Hernia Procedure(s) Performed: 1. Robotic Ventral Hernia Repair with Mesh 2. Robotic Umbilical Hernia Repair with Mesh Anesthesia: ASAEL Surgeon: Souleymane Ivey Pathology: none sent Condition: stable Disposition: PACU Description of Procedure: The patient was taken to the operating suite and placed in the supine position. After sedation was given, the patient was intubated. The abdomen was prepped and draped. A timeout was performed. A #5 mm optiview was used to gain access to the abdomen at Haider's point and the abdomen was insufflated. Additional 5 mm ports and one 12 working 12 mm ports were placed. The abdominal wall was inspected and there was noted to be two seperate and distinct hernia. There was a 6 cm Ventral Hernia with incarcerated fat. There was also a 3 cm umbilical hernia with incarcerated fat. While the patient was under anesthesia, I was able to reduce the incarcerated fat from both hernia. I then proceeded to the close the hernia defects seperately with #0 Vicryl suture using a Ezequiel Zay device. A ventralight mesh was then introduced into the abdomen and tacked in a circumferential manner. It was noted to be in good position with good coverage of both hernias. The ports were then removed and incisions were closed with a skin stapler. This concluded the procedure. An abdominal binder was placed at the conclusion of the procedure.
--- NOTE | 2024-10-07 01:59 | PN ---
PROGRESS NOTE CHIEF COMPLAINT: Incarcerated umbilical hernia. HISTORY OF PRESENT ILLNESS: This lady is being admitted and prepared for surgery, which will probably be tomorrow. PHYSICAL EXAMINATION: VITAL SIGNS: Normal. CHEST: Clear. CARDIAC: Normal. ABDOMEN: Soft, and she has a large incarcerated umbilical hernia with slight redness and tenderness. IMPRESSION: Incarcerated umbilical hernia. PLAN: Prepare for surgery. RICCO / JOSE: [id number] /
--- NOTE | 2024-10-07 02:29 | PN ---
PROGRESS NOTE CHIEF COMPLAINT: Incarcerated umbilical hernia. HISTORY OF PRESENT ILLNESS: This lady is going to the operating room today. Her urine does show significant rbc's. It will be determined if she is having menstrual period or not. PHYSICAL EXAMINATION: VITAL SIGNS: Normal. CHEST: Clear. CARDIAC: Normal. ABDOMEN: Unchanged. IMPRESSION: 1. Incarcerated umbilical hernia. 2. Hematuria. PLAN: Surgery today. MMMARBELLA / SARAYN: [id number] /
[2024-10-07] MEDS: KETOROLAC 15 MG/ML 1 ML VIAL IVP SCH (10:02)
[2024-10-07] MEDS: HYDROcodone/APAP 5-325MG 1 EACH TAB PO PRN (10:03)
[2024-10-07] MEDS: methocarbamoL 500 MG TAB PO SCH (10:31)
--- NOTE | 2024-10-07 12:59 | P.PN ---
Subjective Progress Note Date: 10/07/24 SURGICAL PROGRESS NOTE CHIEF COMPLAINT: Incarcerated ventral hernia and umbilical hernia HISTORY OF PRESENT ILLNESS: Patient is postop day #1 status post robotic ventral hernia repair with mesh and robotic umbilical hernia with mesh. Patient does report abdominal pain. She continues to complain of cough. She denies any nausea or vomiting. Denies any flatus. She is urinating without difficulty. A febrile. WBC 10.2 Hgb 9.5 PHYSICAL EXAM: VITAL SIGNS: Reviewed. GENERAL: Well-developed in no acute distress. ABDOMEN: Soft. Nondistended. Tender at incision sites. Incision sites clean dry and intact. Abdominal binder in place. NEUROLOGIC: Alert and oriented. Cranial nerves II through XII grossly intact. ASSESSMENT: 1. Incarcerated ventral hernia and umbilical hernia PLAN: -Pain management: Toradol changed to scheduled every 6 hours. [place] and Robaxin added to help with pain control -Continue Tessalon Perles for cough -Advance diet to regular -Incentive spirometer ordered -Continue abdominal binder -Repeat CBC in a.m. -Encourage patient increase activity level -DVT prophylaxis subcu heparin Physician Orchestra Leader note has been reviewed by physician. Signing provider agrees with the documented findings, assessment, and plan of care. Attestation Patient seen and examined at bedside. Postoperative day #1, robotic ventral hernia repair with mesh. Patient having some issues with pain and pain management has been adjusted with Toradol, [place] and Robaxin. Continue Tessalon Perles for her cough. Advance diet as tolerated. Continue abdominal binder. Shilpin Cruz, DO Objective - Vital Signs Vital signs: Vital Signs Temp 98.0 F 10/07/24 07:14 Pulse 85 10/07/24 08:00 Resp 20 10/07/24 08:00 BP 117/75 10/07/24 07:14 Pulse Ox 94 L 10/07/24 07:14 FiO2 Intake & Output 10/06/24 10/07/24 10/07/24 18:59 06:59 18:59 Intake Total 850 1820 Output Total 520 Balance 330 1820 Weight 90.718 kg 90.718 kg Intake: IV 850 200 Oral 1620 Output: Urine 500 Estimated Blood Loss 20 Other: # Voids 1 4 - Labs CBC & Chem 7: 10/06/24 08:45 10/06/24 03:52
[2024-10-07] MEDS: HEPARIN SODIUM,PORCINE 5,000 UNIT/ML 1 ML VIAL SQ SCH (23:03)
[2024-10-08 09:02] LABS: Basophils # (A) 0.09 X 10*3/uL (0.00-0.10); Basophils % (A) 0.8 %; Eosinophils # (A) 0.47 X 10*3/uL (0.04-0.35); Eosinophils % (A) 4.3 %; HCT 33.8 % (37.2-46.3); HGB 9.8 g/dL (12.0-15.0); Lymphocytes # (A) 2.01 X 10*3/uL (0.90-5.00); Lymphocytes % (A) 18.3 %; MCH 24.1 pg (27.0-32.0); Mean Platelet Volume 10.4 FL (9.5-12.2); Monocytes # (A) 0.76 X 10*3/uL (0.20-1.00); Monocytes % (A) 6.9 %; NRBC Per 100 WBC 0 X 10*3/uL (0.00-0.01); Neutrophils % (A) 69.4 %; Platelet Count 443 X 10*3/uL (140-440); RBC 4.07 X 10*6/uL (4.10-5.20); RDW 20.2 % (11.5-14.5); WBC 10.96 X 10*3/uL (4.50-10.00)
[2024-10-08] MEDS: methylPREDNISolone SOD SUCCI 125 MG/2 ML VIAL IV SCH (11:52)
[2024-10-08] MEDS: IPRATROPIUM-ALBUTEROL 3 ML NEB INHALATION SCH (12:18)
--- NOTE | 2024-10-08 12:37 | P.PN ---
Subjective Progress Note Date: 10/08/24 SURGICAL PROGRESS NOTE CHIEF COMPLAINT: Incarcerated ventral hernia and umbilical hernia HISTORY OF PRESENT ILLNESS: Patient is postop day #2 status post robotic ventral hernia repair with mesh and robotic umbilical hernia with mesh. Patient's main complaint is cough. Patient reports she has had this chronic cough for multiple months. She does have a history of having COVID twice. Patient reports that the cough is causing her abdominal pain. She is requesting to be seen by pulmonary service. Patient denies any flatus or bowel movement. She did have nausea earlier. Oral intake is decreased. She is requesting more of soups instead of regular food. Afebrile. WBC is 10.96 Hgb stable at 9.8 platelets 443 PHYSICAL EXAM: VITAL SIGNS: Reviewed. GENERAL: Well-developed in no acute distress. ABDOMEN: Soft. Nondistended. Tender at incision sites. Incision sites clean dry and intact. Abdominal binder in place. NEUROLOGIC: Alert and oriented. Cranial nerves II through XII grossly intact. ASSESSMENT: 1. Incarcerated ventral hernia and umbilical hernia PLAN: -Continue pain management -Consult pulmonary service due to chronic cough -Downgrade diet to full liquids -Encourage patient to ambulate -Encourage patient to use incentive spirometer -Continue abdominal binder -Repeat CBC in a.m. -DVT prophylaxis subcu heparin Physician Title Camera Operator note has been reviewed by physician. Signing provider agrees with the documented findings, assessment, and plan of care. Attestation Patient seen and examined at bedside. Pain appears to be overall well- controlled. She was evaluated by pulmonary team today due to her chronic cough. Appears to be chronic bronchitis and medication has been implemented. Patient has not had significant bowel function, however has had flatus. We will start patient on bowel regimen. Continue abdominal binder. Likely discharge in the next 24 to 48 hours. Edmund Cruz, Objective - Vital Signs Vital signs: Vital Signs Temp 98.4 F 10/08/24 07:42 Pulse 86 10/08/24 12:30 Resp 16 10/08/24 07:42 BP 133/80 10/08/24 07:42 Pulse Ox 96 10/08/24 07:42 FiO2 Intake & Output 10/07/24 10/08/24 10/08/24 18:59 06:59 18:59 Other: # Voids 3 1 - Labs CBC & Chem 7: 10/08/24 05:39 10/06/24 03:52 Labs: Abnormal Lab Results - Last 24 Hours (Table) 10/08/24 Range/Units 05:39 WBC 10.96 H (4.50-10.00) X 10*3/uL RBC 4.07 L (4.10-5.20) X 10*6/uL Hgb 9.8 L (12.0-15.0) g/dL Hct 33.8 L (37.2-46.3) % MCH 24.1 L (27.0-32.0) pg MCHC 29.0 L (32.0-37.0) g/dL RDW 20.2 H (11.5-14.5) % Plt Count 443 H (140-440) X 10*3/uL Eosinophils # 0.47 H (0.04-0.35) X 10*3/uL
[2024-10-08] MEDS: SENNOSIDES 8.6 MG TAB PO SCH (16:07)
[2024-10-08] MEDS: polyethylene glycoL 3350 17 GM POWD.PACK PO SCH (16:07)
--- NOTE | 2024-10-08 17:45 | P.CNPUL ---
History of Present Illness Consult date: 10/08/24 Reason for consult: cough History of present illness: On 10/08/2024, this patient is being seen in consultation for cough. Noted the patient is a chronic smoker and she quit smoking approximately a month ago. Her cough started back in April 2024 and the patient is having a congested cough with limited sputum production. No significant wheezing. She was experiencing some exertional dyspnea. She was treated through her primary care physician with a combination of antibiotics and bronchodilators and steroids without any much improvement. She has also undergone an outpatient CAT scan of the chest that was done on 09/03/2024 that showed no acute abnormalities. Chest x-ray from 10/04/2024 was essentially within normal limits. Noted the patient presented to the hospital with abdominal pain and the patient was found to have a ventral wal l hernia with evidence of omental strangulation. Noted that she had a ventral wall hernia and this complication occurred prior related to her ongoing coughing. The hernia was not reducible. Based on that, the patient was taken to the operating room and the patient underwent a robotic ventral hernia repair with mesh and robotic umbilical hernia repair with mesh. Surgery was done on 10/06/2024 and the patient is currently postop day #2. She is currently on room air oxygen. White cell count of 10.9. Hemoglobin 9.8. Platelet count is at 443. Electrolytes are all within normal limits. A pulmonary consultation was requested accordingly. No history of any cardiac disease. No childhood asthma. No history of any environmental allergies. No exposure to any chemicals fumes or toxic respiratory m agents. No recurrent pneumonias. Review of Systems Constitutional: Reports as per HPI Eyes: denies as per HPI, denies blurred vision, denies bulging eye, denies decreased vision, denies diplopia, denies discharge, denies dry eye, denies irritation, denies itching, denies pain, denies photophobia, denies loss of peripheral vision, denies loss of vision, denies tunnel vision/blind spots Ears: deny: decreased hearing, ear discharge, earache, tinnitus Ears, nose, mouth and throat: Reports as per HPI Breasts: absent: as per HPI, change in shape, gynecomastia, masses, nipple discharge, pain, skin changes, swelling Cardiovascular: Reports as per HPI Respiratory: Reports cough Gastrointestinal: Reports as per HPI Genitourinary: Reports as per HPI Menstruation: Reports as per HPI Musculoskeletal: Reports as per HPI Musculoskeletal: absent: ankle pain, ankle stiffness, ankle swelling, as per HPI, elbow pain, elbow stiffness, elbow swelling, foot pain, foot stiffness, foot swelling, hand pain, hand stiffness, hand swelling, hip pain, hip stiffness, hip swelling, knee pain, knee stiffness, knee swelling, shoulder pain, shoulder stiffness, shoulder swelling, wrist pain, wrist stiffness, wrist swelling Integumentary: Reports as per HPI Neurological: Reports as per HPI Psychiatric: Reports as per HPI Endocrine: Reports as per HPI Hematologic/Lymphatic: Reports as per HPI Allergic/Immunologic: Reports as per HPI Past Medical History Past Medical History: No Reported History Additional Past Medical History / Comment(s): mono History of Any Multi-Drug Resistant Organisms: None Reported Past Surgical History: Section Past Psychological History: Depression Smoking Status: Never smoker Past Alcohol Use History: Occasional Past Drug Use History: Marijuana Medications and Allergies Home Medications Medication Instructions Recorded Confirmed Type Pantoprazole [Protonix] 40 mg PO DAILY 10/04/24 10/04/24 History hydrOXYzine HCL [Atarax] 25 mg PO TID PRN 10/04/24 10/04/24 History Allergies Allergy/AdvReac Type Severity Reaction Status Date / Time Penicillins Allergy Unknown Verified 10/06/24 15:14 Physical Exam Vitals: Vital Signs Temp Pulse Resp BP Pulse Ox 10/08/24 07:42 98.4 F 87 16 133/80 96 10/08/24 01:42 98.8 F 87 17 122/75 91 L 10/07/24 19:20 98.3 F 91 16 108/71 93 L 10/07/24 14:02 98.3 F 83 20 122/79 96 Intake and Output 10/07/24 10/08/24 10/08/24 22:59 06:59 14:59 Other: # Voids 3 1 The patient appeared well nourished and normally developed. Vital signs as do cumented. Head exam is unremarkable. No scleral icterus or corneal arcus noted. Neck is without jugular venous distension, thyromegaly, or carotid bruits. Carotid upstrokes are brisk bilaterally. Lungs show diminished breath sounds bilaterally along with scattered rhonchi Cardiac exam reveals the PMI to be normally sized and situated. Rhythm is regular. First and second heart sounds normal. No murmurs, rubs or gallops. Abdominal exam reveals normal bowel sounds, no masses, no organomegaly and no aortic enlargement. Surgical wound site over the anterior abdominal wall is dry clean and intact Extremities are nonedematous and both femoral and pedal pulses are normal. Examination of the skin revealed no evidence of significant rashes, suspicious appearing nevi or other concerning lesions. Neurologically, the patient is awake and alert and the patient does not have any focal neurological deficit. Cranial nerves are essentially intact. Results - Laboratory Findings CBC and BMP: 10/08/24 05:39 10/06/24 03:52 Abnormal lab findings: Abnormal Labs 10/04/24 10/04/24 10/04/24 12:44 12:44 17:00 WBC RBC Hgb Hct MCH MCHC RDW 18.5 H Plt Count 475 H Eosinophils # 1.8 H Carbon Dioxide BUN Glucose 117 H AST 62 H ALT 79 H Total Protein 9.0 H Urine Appearance Cloudy H Ur Specific [place] >1.050 H Urine Protein 1+ H Urine Ketones Trace H Urine Blood Large H Ur Leukocyte Esterase Trace H Urine RBC >182 H Ur Squamous Epith Cells 16 H Urine Mucus Rare H 10/06/24 10/06/24 10/06/24 03:52 03:52 08:45 WBC RBC Hgb 9.5 L D 9.5 L Hct 32.0 L 32.0 L MCH 24.8 L 24.7 L MCHC 29.8 L 29.7 L RDW 18.8 H 18.9 H Plt Count Eosinophils # 1.9 H Carbon Dioxide 32 H BUN 5 L Glucose 109 H AST ALT Total Protein Urine Appearance Ur Specific [place] Urine Protein Urine Ketones Urine Blood Ur Leukocyte Esterase Urine RBC Ur Squamous Epith Cells Urine Mucus 10/08/24 05:39 WBC 10.96 H RBC 4.07 L Hgb 9.8 L Hct 33.8 L MCH 24.1 L MCHC 29.0 L RDW 20.2 H Plt Count 443 H Eosinophils # 0.47 H Carbon Dioxide BUN Glucose AST ALT Total Protein Urine Appearance Ur Specific [place] Urine Protein Urine Ketones Urine Blood Ur Leukocyte Esterase Urine RBC Ur Squamous Epith Cells Urine Mucus - Diagnostic Findings Chest x-ray: image reviewed CT scan - chest: image reviewed Assessment and Plan Plan: Chronic cough likely secondary to chronic bronchitis/smoking induced. Chest x- ray is within normal limits. CAT scan of the chest from August 2024 was also within normal limits. No history of any asthmatic disorder. No evidence of pneumonia. No bronchiectasis. No other comorbidities contributing to her chronic cough Ventral hernia with bowel strangulation, status post robotic repair of a ventral and umbilical hernia. The patient is postop day #2 History of chronic smoking Plan Will start the patient on DuoNeb nebulized treatments [id number] 4 times a day Will start the patient on a combination of Perforomist and Pulmicort nebulized treatments twice a day IV Solu-Medrol 60 mg every 6 hours Robitussin DM for cough and congestion Continue Tessalon Perles Monitor postoperative care Anticipate the cough to subside gradually over the next few weeks Outpatient pulmonary function test Smoking cessation counseling Postsurgical care Will continue to follow. Also provide the patient incentive spirometer.
[2024-10-08 18:50] LABS: Influenza A Not Detected (Not Detectd); Influenza B Not Detected (Not Detectd); RSV Not Detected (Not Detectd)
[2024-10-08] MEDS: BUDESONIDE 0.5 MG/2 ML NEBU INHALATION SCH (20:57)
[2024-10-08] MEDS: FORMOTEROL FUMARATE 20 MCG/2 ML NEBU INHALATION SCH (20:57)
[2024-10-09 09:37] LABS: Basophils # (A) 0.01 X 10*3/uL (0.00-0.10); Basophils % (A) 0.1 %; Eosinophils # (A) 0 X 10*3/uL (0.04-0.35); Eosinophils % (A) 0 %; HGB 9.7 g/dL (12.0-15.0); Lymphocytes # (A) 0.82 X 10*3/uL (0.90-5.00); Lymphocytes % (A) 6.2 %; MCH 23.5 pg (27.0-32.0); MCHC 28.5 g/dL (32.0-37.0); MCV 82.5 FL (80.0-97.0); Mean Platelet Volume 10.8 FL (9.5-12.2); Monocytes # (A) 0.31 X 10*3/uL (0.20-1.00); Monocytes % (A) 2.4 %; NRBC Per 100 WBC 0 X 10*3/uL (0.00-0.01); Neutrophils # (A) 11.89 X 10*3/uL (1.80-7.70); Neutrophils % (A) 90.4 %; Platelet Count 487 X 10*3/uL (140-440); RBC 4.12 X 10*6/uL (4.10-5.20); RDW 19.6 % (11.5-14.5); WBC 13.15 X 10*3/uL (4.50-10.00)
[2024-10-09] MEDS: diphenhydrAMINE 25 MG CAP PO PRN (10:14)
--- NOTE | 2024-10-09 13:12 | P.PN ---
Subjective Progress Note Date: 10/09/24 SURGICAL PROGRESS NOTE CHIEF COMPLAINT: Incarcerated ventral hernia and umbilical hernia HISTORY OF PRESENT ILLNESS: Patient is postop day #3 status post robotic ventral hernia repair with mesh and robotic umbilical hernia with mesh. Patient seen by pulmonary service in regards to her cough and bronchitis. Pulmonary did add IV steroids and nebulizer treatments. Patient continues to complain of cough contributing to her abdominal pain. Cough is now productive. She did have flatus and a bowel movement. She is tolerating regular diet. She is complaining of itching at the incisions. She does have 1 blister at the lower abdominal incision. Afebrile. WBC is up 13.15. Patient was started on steroids yesterday. Hgb 9.7. Influenza, RSV and COVID-19 not detected. PHYSICAL EXAM: VITAL SIGNS: Reviewed. GENERAL: Well-developed in no acute distress. ABDOMEN: Soft. Nondistended. Tender at incision sites. Incisions with small blood noted in the left lower abdominal incision with small blister outside of the tape. Abdominal binder in place. NEUROLOGIC: Alert and oriented. Cranial nerves II through XII grossly intact. ASSESSMENT: 1. Incarcerated ventral hernia and umbilical hernia PLAN: -Continue pain management -Continue regular diet -Benadryl added for itching -Pulmonary management for chronic bronchitis -DVT prophylaxis subcu heparin Physician Consumer Studies Professor note has been reviewed by physician. Signing provider agrees with the documented findings, assessment, and plan of care. Objective - Vital Signs Vital signs: Vital Signs Temp 98.3 F 10/09/24 07:16 Pulse 76 10/09/24 11:24 Resp 20 10/09/24 08:00 BP 145/81 10/09/24 07:16 Pulse Ox 94 L 10/09/24 07:16 FiO2 Intake & Output 10/08/24 10/09/24 10/09/24 18:59 06:59 18:59 Intake Total 3000 240 Output Total 5 Balance 2995 240 Intake: Oral 3000 240 Output: Urine 5 Other: Voiding Method Toilet Toilet # Voids 1 - Labs CBC & Chem 7: 10/09/24 06:02 10/06/24 03:52 Labs: Abnormal Lab Results - Last 24 Hours (Table) 10/09/24 Range/Units 06:02 WBC 13.15 H (4.50-10.00) X 10*3/uL Hgb 9.7 L (12.0-15.0) g/dL Hct 34.0 L (37.2-46.3) % MCH 23.5 L (27.0-32.0) pg MCHC 28.5 L (32.0-37.0) g/dL RDW 19.6 H (11.5-14.5) % Plt Count 487 H (140-440) X 10*3/uL Immature Gran # 0.12 H (0.00-0.04) X 10*3/uL Neutrophils # 11.89 H (1.80-7.70) X 10*3/uL Lymphocytes # 0.82 L (0.90-5.00) X 10*3/uL Eosinophils # 0 L (0.04-0.35) X 10*3/uL Assessment and Plan Assessment: continue ambulation, incentive spirometer advance diet as tolerated Time with Patient: Less than 30
--- NOTE | 2024-10-09 16:08 | P.PN ---
Subjective Progress Note Date: 10/09/24 On 10/08/2024, this patient is being seen in consultation for cough. Noted the patient is a chronic smoker and she quit smoking approximately a month ago. Her cough started back in April 2024 and the patient is having a congested cough with limited sputum production. No significant wheezing. She was experiencing some exertional dyspnea. She was treated through her primary care physician with a combination of antibiotics and bronchodilators and steroids without any much improvement. She has also undergone an outpatient CAT scan of the chest that was done on 09/03/2024 that showed no acute abnormalities. Chest x-ray from 10/04/2024 was essentially within normal limits. Noted the patient presented to the hospital with abdominal pain and the patient was found to have a ventral wall hernia with evidence of omental strangulation. Noted that she had a ventral wall hernia and this complication occurred prior related to her ongoing coughing. The hernia was not reducible. Based on that, the patient was taken to the operating room and the patient underwent a robotic ventral hernia repair with mesh and robotic umbilical hernia repair with mesh. Surgery was done on 10/06/2024 and the patient is currently postop day #2. She is currently on room air oxygen. White cell count of 10.9. Hemoglobin 9.8. Platelet count is at 443. Electrolytes are all within normal limits. A pulmonary consultation was requested accordingly. No history of any cardiac disease. No childhood asthma. No history of any environmental allergies. No exposure to any chemicals fumes or toxic respiratory m agents. No recurrent pneumonias. On 10/09/2024, the patient is being seen for a follow-up. The patient is recovering from her ventral and umbilical hernia repair. Her cough is slightly improved compared to yesterday. The patient is able to produce some sputum. I placed the patient on DuoNeb updrafts, IV Solu-Medrol and she is also on a combination of Perforomist and Pulmicort nebulized treatments twice a day. Room air pulse ox is 96%. Hemoglobin is at 9.7 with a white cell count of 13 and a platelet count of 487. The viral 4 Plex came back negative. No other new complaints otherwise for now. The patient is recovering from abdominal surgery. Cough is still present although less severe. She is afebrile. Tolerating diet. Objective - Vital Signs Vital signs: Vital Signs Temp 98.3 F 10/09/24 07:16 Pulse 76 10/09/24 11:24 Resp 20 10/09/24 08:00 BP 145/81 10/09/24 07:16 Pulse Ox 94 L 10/09/24 07:16 FiO2 Intake & Output 10/08/24 10/09/24 10/09/24 18:59 06:59 18:59 Intake Total 3000 240 Output Total 5 Balance 2995 240 Intake: Oral 3000 240 Output: Urine 5 Other: Voiding Method Toilet Toilet # Voids 1 - Exam The patient appeared well nourished and normally developed. Vital signs as documented. Head exam is unremarkable. No scleral icterus or corneal arcus noted. Neck is without jugular venous distension, thyromegaly, or carotid bruits. Carotid upstrokes are brisk bilaterally. Lungs show diminished breath sounds bilaterally along with scattered rhonchi Cardiac exam reveals the PMI to be normally sized and situated. Rhythm is regular. First and second heart sounds normal. No murmurs, rubs or gallops. Abdominal exam reveals normal bowel sounds, no masses, no organomegaly and no aortic enlargement. Surgical wound site over the anterior abdominal wall is dry clean and intact Extremities are nonedematous and both femoral and pedal pulses are normal. Examination of the skin revealed no evidence of significant rashes, suspicious appearing nevi or other concerning lesions. Neurologically, the patient is awake and alert and the patient does not have any focal neurological deficit. Cranial nerves are essentially intact. - Labs CBC & Chem 7: 10/09/24 06:02 10/06/24 03:52 Labs: Abnormal Lab Results - Last 24 Hours (Table) 10/09/24 Range/Units 06:02 WBC 13.15 H (4.50-10.00) X 10*3/uL Hgb 9.7 L (12.0-15.0) g/dL Hct 34.0 L (37.2-46.3) % MCH 23.5 L (27.0-32.0) pg MCHC 28.5 L (32.0-37.0) g/dL RDW 19.6 H (11.5-14.5) % Plt Count 487 H (140-440) X 10*3/uL Immature Gran # 0.12 H (0.00-0.04) X 10*3/uL Neutrophils # 11.89 H (1.80-7.70) X 10*3/uL Lymphocytes # 0.82 L (0.90-5.00) X 10*3/uL Eosinophils # 0 L (0.04-0.35) X 10*3/uL Assessment and Plan Plan: Chronic cough likely secondary to chronic bronchitis/smoking induced. Chest x- ray is within normal limits. CAT scan of the chest from August 2024 was also within normal limits. No history of any asthmatic disorder. No evidence of pneumonia. No bronchiectasis. No other comorbidities contributing to her chronic cough Ventral hernia with bowel strangulation, status post robotic repair of a ventral and umbilical hernia. The patient is postop day # 3 History of chronic smoking Plan Clinically slightly improved compared to yesterday although she continues to have a congested cough consistent with chronic bronchitis Continue DuoNeb nebulized treatments [id number] 4 times a day Continue combination of Perforomist and Pulmicort nebulized treatments twice a day Continue IV Solu-Medrol 60 mg every 6 hours and the patient will be given a prednisone burst taper at time of discharge Rosas DM for cough and congestion Continue Migel Richardson Monitor postoperative care Anticipate the cough to subside gradually over the next few weeks Outpatient pulmonary function test Smoking cessation counseling Postsurgical care Will continue to follow. Also provide the patient incentive spirometer.
[2024-10-10] MEDS: KETOROLAC 15 MG/ML 1 ML VIAL IM STA (07:19)
[2024-10-10] MEDS: predniSONE 20 MG TAB PO SCH (08:40)
[2024-10-10 09:25] LABS: HGB 8.6 g/dL (12.0-15.0); MCH 23.5 pg (27.0-32.0); MCHC 28.7 g/dL (32.0-37.0); Mean Platelet Volume 10.6 FL (9.5-12.2); NRBC Per 100 WBC 0 X 10*3/uL (0.00-0.01); Platelet Count 485 X 10*3/uL (140-440); RBC 3.66 X 10*6/uL (4.10-5.20); RDW 19.8 % (11.5-14.5)
[2024-10-10 09:26] LABS: Basophils # (A) 0.01 X 10*3/uL (0.00-0.10); Basophils % (A) 0.1 %; Eosinophils # (A) 0 X 10*3/uL (0.04-0.35); Eosinophils % (A) 0 %; Lymphocytes # (A) 1.49 X 10*3/uL (0.90-5.00); Lymphocytes % (A) 8.9 %; Monocytes # (A) 0.97 X 10*3/uL (0.20-1.00); Monocytes % (A) 5.8 %; Neutrophils # (A) 14.08 X 10*3/uL (1.80-7.70); Neutrophils % (A) 84.3 %
--- NOTE | 2024-10-10 10:18 | XR ---
EXAMINATION TYPE: XR chest 1V portable DATE OF EXAM: 10/10/2024 10:06 AM COMPARISON: 10/04/2024 CLINICAL INDICATION: Female, 39 years old with history of assess for atelectasis,, cough x1 month TECHNIQUE: XR chest 1V portable view(s) obtained. FINDINGS: The heart size is normal. The pulmonary vasculature is somewhat prominent. The lungs are clear. IMPRESSION: 1. Correlate mild volume overload [facility], , 10/10/2024 10:15 AM
--- NOTE | 2024-10-10 13:47 | P.PN ---
Subjective Progress Note Date: 10/10/24 On 10/08/2024, this patient is being seen in consultation for cough. Noted the patient is a chronic smoker and she quit smoking approximately a month ago. Her cough started back in April 2024 and the patient is having a congested cough with limited sputum production. No significant wheezing. She was experiencing some exertional dyspnea. She was treated through her primary care physician with a combination of antibiotics and bronchodilators and steroids without any much improvement. She has also undergone an outpatient CAT scan of the chest that was done on 09/03/2024 that showed no acute abnormalities. Chest x-ray from 10/04/2024 was essentially within normal limits. Noted the patient presented to the hospital with abdominal pain and the patient was found to have a ventral wall hernia with evidence of omental strangulation. Noted that she had a ventral wall hernia and this complication occurred prior related to her ongoing coughing. The hernia was not reducible. Based on that, the patient was taken to the operating room and the patient underwent a robotic ventral hernia repair with mesh and robotic umbilical hernia repair with mesh. Surgery was done on 10/06/2024 and the patient is currently postop day #2. She is currently on room air oxygen. White cell count of 10.9. Hemoglobin 9.8. Platelet count is at 443. Electrolytes are all within normal limits. A pulmonary consultation was requested accordingly. No history of any cardiac disease. No childhood asthma. No history of any environmental allergies. No exposure to any chemicals fumes or toxic respiratory m agents. No recurrent pneumonias. On 10/09/2024, the patient is being seen for a follow-up. The patient is recovering from her ventral and umbilical hernia repair. Her cough is slightly improved compared to yesterday. The patient is able to produce some sputum. I placed the patient on DuoNeb updrafts, IV Solu-Medrol and she is also on a combination of Perforomist and Pulmicort nebulized treatments twice a day. Room air pulse ox is 96%. Hemoglobin is at 9.7 with a white cell count of 13 and a platelet count of 487. The viral 4 Plex came back negative. No other new complaints otherwise for now. The patient is recovering from abdominal surgery. Cough is still present although less severe. She is afebrile. Tolerating diet. On 10/10/2024, the patient continues to have cough and it is gradually improving. She is able to expectorate some mucus. She was taken off IV Solu-Medrol which was switched to prednisone burst taper. She remains on DuoNeb the regiment [id number]. She also is on a combination of Perforomist and Pulmicort updrafts twice a day. White cell count slightly elevated today to steroids. The white cell count at 16 with a hemoglobin of 8.6 and a platelet count of 489. The viral 4 Plex was negative. The patient is on room air oxygen. Tolerating diet. No nausea or emesis. No other complaints otherwise. Objective - Vital Signs Vital signs: Vital Signs Temp 98.0 F 10/10/24 07:08 Pulse 88 10/10/24 09:53 Resp 16 10/10/24 07:08 BP 130/83 10/10/24 07:08 Pulse Ox 96 10/10/24 07:08 FiO2 Intake & Output 10/09/24 10/10/24 10/10/24 18:59 06:59 18:59 Other: Voiding Method Toilet # Voids 2 2 # Bowel Movements 1 - Exam The patient appeared well nourished and normally developed. Vital signs as doc umented. Head exam is unremarkable. No scleral icterus or corneal arcus noted. Neck is without jugular venous distension, thyromegaly, or carotid bruits. Carotid upstrokes are brisk bilaterally. Lungs show diminished breath sounds bilaterally along with scattered rhonchi Cardiac exam reveals the PMI to be normally sized and situated. Rhythm is regular. First and second heart sounds normal. No murmurs, rubs or gallops. Abdominal exam reveals normal bowel sounds, no masses, no organomegaly and no aortic enlargement. Surgical wound site over the anterior abdominal wall is dry clean and intact Extremities are nonedematous and both femoral and pedal pulses are normal. Examination of the skin revealed no evidence of significant rashes, suspicious appearing nevi or other concerning lesions. Neurologically, the patient is awake and alert and the patient does not have any focal neurological deficit. Cranial nerves are essentially intact. - Labs CBC & Chem 7: 10/10/24 04:24 10/06/24 03:52 Labs: Abnormal Lab Results - Last 24 Hours (Table) 10/10/24 Range/Units 04:24 WBC 16.70 H (4.50-10.00) X 10*3/uL RBC 3.66 L (4.10-5.20) X 10*6/uL Hgb 8.6 L (12.0-15.0) g/dL Hct 30.0 L (37.2-46.3) % MCH 23.5 L (27.0-32.0) pg MCHC 28.7 L (32.0-37.0) g/dL RDW 19.8 H (11.5-14.5) % Plt Count 485 H (140-440) X 10*3/uL Immature Gran # 0.15 H (0.00-0.04) X 10*3/uL Neutrophils # 14.08 H (1.80-7.70) X 10*3/uL Eosinophils # 0 L (0.04-0.35) X 10*3/uL Assessment and Plan Plan: Chronic cough likely secondary to chronic bronchitis/smoking induced. Chest x- ray is within normal limits. CAT scan of the chest from August 2024 was also within normal limits. No history of any asthmatic disorder. No evidence of pneumonia. No bronchiectasis. No other comorbidities contributing to her chronic cough Ventral hernia with bowel strangulation, status post robotic repair of a ventral and umbilical hernia. The patient is postop day # 4 History of chronic smoking Plan Clinically continues to improve Continue DuoNeb nebulized treatments [id number] 4 times a day Continue combination of Perforomist and Pulmicort nebulized treatments twice a day Start the patient on prednisone burst taper starting dose of 40 mg p.o. daily Robitussin DM for cough and congestion Continue Migel Richardson Monitor postoperative care Anticipate the cough to subside gradually over the next few weeks Outpatient pulmonary function test Smoking cessation counseling Postsurgical care Will continue to follow. Also provide the patient incentive spirometer. Will likely need a maintenance treatment for chronic bronchitis on outpatient basis. Recommend Charissa Lyle. The patient has a home nebulizer.
--- NOTE | 2024-10-10 19:05 | P.PN ---
Subjective Patient seen and evaluated at bedside. patient doing well, admits to some abdominal pain, denies nausea or vomiting. Objective - Vital Signs Vital signs: Vital Signs Temp 98.2 F 10/10/24 13:49 Pulse 100 10/10/24 16:43 Resp 16 10/10/24 13:49 BP 134/71 10/10/24 13:49 Pulse Ox 97 10/10/24 13:49 FiO2 Intake & Output 10/10/24 10/10/24 10/11/24 06:59 18:59 06:59 Other: # Voids 2 2 # Bowel Movements 1 0 - Exam gen: nad cv: rrr pul: non labored breathing abd: soft, min distention, mild tenderness to palpation no guarding rebound tenderness - Labs CBC & Chem 7: 10/10/24 04:24 10/06/24 03:52 Labs: Abnormal Lab Results - Last 24 Hours (Table) 10/10/24 Range/Units 04:24 WBC 16.70 H (4.50-10.00) X 10*3/uL RBC 3.66 L (4.10-5.20) X 10*6/uL Hgb 8.6 L (12.0-15.0) g/dL Hct 30.0 L (37.2-46.3) % MCH 23.5 L (27.0-32.0) pg MCHC 28.7 L (32.0-37.0) g/dL RDW 19.8 H (11.5-14.5) % Plt Count 485 H (140-440) X 10*3/uL Immature Gran # 0.15 H (0.00-0.04) X 10*3/uL Neutrophils # 14.08 H (1.80-7.70) X 10*3/uL Eosinophils # 0 L (0.04-0.35) X 10*3/uL Assessment and Plan Assessment: continue ambulation, incentive spirometer advance diet as tolerated discharge planning acknowledge leukocytosis, likely 2/2 steroids Time with Patient: Less than 30
--- NOTE | 2024-10-11 13:25 | P.PN ---
Subjective Progress Note Date: 10/11/24 On 10/08/2024, this patient is being seen in consultation for cough. Noted the patient is a chronic smoker and she quit smoking approximately a month ago. Her cough started back in April 2024 and the patient is having a congested cough with limited sputum production. No significant wheezing. She was experiencing some exertional dyspnea. She was treated through her primary care physician with a combination of antibiotics and bronchodilators and steroids without any much improvement. She has also undergone an outpatient CAT scan of the chest that was done on 09/03/2024 that showed no acute abnormalities. Chest x-ray from 10/04/2024 was essentially within normal limits. Noted the patient presented to the hospital with abdominal pain and the patient was found to have a ventral wall hernia with evidence of omental strangulation. Noted that she had a ventral wall hernia and this complication occurred prior related to her ongoing coughing. The hernia was not reducible. Based on that, the patient was taken to the operating room and the patient underwent a robotic ventral hernia repair with mesh and robotic umbilical hernia repair with mesh. Surgery was done on 10/06/2024 and the patient is currently postop day #2. She is currently on room air oxygen. White cell count of 10.9. Hemoglobin 9.8. Platelet count is at 443. Electrolytes are all within normal limits. A pulmonary consultation was requested accordingly. No history of any cardiac disease. No childhood asthma. No history of any environmental allergies. No exposure to any chemicals fumes or toxic respiratory m agents. No recurrent pneumonias. On 10/09/2024, the patient is being seen for a follow-up. The patient is recovering from her ventral and umbilical hernia repair. Her cough is slightly improved compared to yesterday. The patient is able to produce some sputum. I placed the patient on DuoNeb updrafts, IV Solu-Medrol and she is also on a combination of Perforomist and Pulmicort nebulized treatments twice a day. Room air pulse ox is 96%. Hemoglobin is at 9.7 with a white cell count of 13 and a platelet count of 487. The viral 4 Plex came back negative. No other new complaints otherwise for now. The patient is recovering from abdominal surgery. Cough is still present although less severe. She is afebrile. Tolerating diet. On 10/10/2024, the patient continues to have cough and it is gradually improving. She is able to expectorate some mucus. She was taken off IV Solu-Medrol which was switched to prednisone burst taper. She remains on DuoNeb the regiment [id number]. She also is on a combination of Perforomist and Pulmicort updrafts twice a day. White cell count slightly elevated today to steroids. The white cell count at 16 with a hemoglobin of 8.6 and a platelet count of 489. The viral 4 Plex was negative. The patient is on room air oxygen. Tolerating diet. No nausea or emesis. No other complaints otherwise. 10/11/2024, the patient is being seen for a follow-up. Cough is gradually subsiding. She remains on a combination performance of Pulmicort updrafts twice a day, DuoNeb the regiment 4 times a day and she is also on oral prednisone. She is also on Robitussin. White cell count is 16, hemoglobin 8.6 and a platelet count of 485. She remains on room air oxygen. No new complaints. Passing flatus. Tolerating diet. Objective - Vital Signs Vital signs: Vital Signs Temp 97.1 F L 10/11/24 08:10 Pulse 92 10/11/24 09:10 Resp 17 10/11/24 08:10 BP 123/76 10/11/24 08:10 Pulse Ox 96 10/11/24 08:10 FiO2 Intake & Output 10/10/24 10/11/24 10/11/24 18:59 06:59 18:59 Other: Voiding Method Toilet # Voids 2 3 # Bowel Movements 0 - Exam The patient appeared well nourished and normally developed. Vital signs as documented. Head exam is unremarkable. No scleral icterus or corneal arcus noted. Neck is without jugular venous distension, thyromegaly, or carotid bruits. Carotid upstrokes are brisk bilaterally. Lungs show diminished breath sounds bilaterally along with scattered rhonchi Cardiac exam reveals the PMI to be normally sized and situated. Rhythm is regular. First and second heart sounds normal. No murmurs, rubs or gallops. Abdominal exam reveals normal bowel sounds, no masses, no organomegaly and no aortic enlargement. Surgical wound site over the anterior abdominal wall is dry clean and intact Extremities are nonedematous and both femoral and pedal pulses are normal. Examination of the skin revealed no evidence of significant rashes, suspicious appearing nevi or other concerning lesions. Neurologically, the patient is awake and alert and the patient does not have any focal neurological deficit. Cranial nerves are essentially intact. - Labs CBC & Chem 7: 10/10/24 04:24 10/06/24 03:52 Assessment and Plan Plan: Chronic cough likely secondary to chronic bronchitis/smoking induced. Chest x- ray is within normal limits. CAT scan of the chest from August 2024 was also within normal limits. No history of any asthmatic disorder. No evidence of pneumonia. No bronchiectasis. No other comorbidities contributing to her chronic cough Ventral hernia with bowel strangulation, status post robotic repair of a ventral and umbilical hernia. The patient is postop day # 5 History of chronic smoking Plan Clinically continues to improve, slow to progress. Cough is subsided although she continues to have some chest congestion. Continue DuoNeb nebulized treatments [id number] 4 times a day Continue combination of Perforomist and Pulmicort nebulized treatments twice a day, consider Breztri or Trelegy Ellipta at the time of discharge Start the patient on prednisone burst taper starting dose of 40 mg p.o. daily, to be tapered over the next 16 days Robitussin DM for cough and congestion Continue Tessalon Debra Monitor postoperative care Anticipate the cough to subside gradually over the next few weeks Outpatient pulmonary function test Smoking cessation counseling Postsurgical care Will continue to follow. Also provide the patient incentive spirometer. Will likely need a maintenance treatment for chronic bronchitis on outpatient basis. Recommend either Trelegy Ellipta or Breztri Possible discharge in next 24 hours.
[2024-10-11 19:42] VITALS: TEMP 98.2
--- NOTE | 2024-10-11 23:14 | P.PN ---
Subjective Patient seen and evaluated at bedside. patient doing well, admits to some abdominal pain, denies nausea or vomiting. Objective - Vital Signs Vital signs: Vital Signs Temp 98.2 F 10/11/24 19:39 Pulse 96 10/11/24 20:27 Resp 16 10/11/24 19:39 BP 111/66 10/11/24 19:39 Pulse Ox 95 10/11/24 19:39 FiO2 Intake & Output 10/11/24 10/11/24 10/12/24 06:59 18:59 06:59 Intake Total 2220 540 Balance 2220 540 Intake: Oral 2220 540 Other: Voiding Method Toilet Toilet # Voids 3 5 - Exam gen: nad cv: rrr pul: non labored breathing abd: soft, min distention, mild tenderness to palpation no guarding rebound tenderness - Labs CBC & Chem 7: 10/10/24 04:24 10/06/24 03:52 Assessment and Plan Assessment: 39 yo female s/p robotic incisional hernia repair continue ambulation, incentive spirometer advance diet as tolerated discharge planning acknowledge leukocytosis, likely 2/2 steroids Time with Patient: Less than 30
--- NOTE | 2024-10-12 01:44 | PN ---
PROGRESS NOTE DATE OF SERVICE: 10/07/[address] Ivey. CHIEF COMPLAINT: Incarcerated ventral hernia. HISTORY OF PRESENT ILLNESS: This lady is doing fairly well. She does have a cough. PHYSICAL EXAMINATION: CHEST: Clear. CARDIAC: Normal. IMPRESSION: 1. Incarcerated ventral hernia. 2. Chronic cough with shortness of breath. PLAN: She would like Atarax for itching and her anxiety. MMODL / IJN: [id number] /
--- NOTE | 2024-10-12 01:59 | PN ---
PROGRESS NOTE DATE OF SERVICE: 10/08/2024 CHIEF COMPLAINT: Ventral hernia. HISTORY OF PRESENT ILLNESS: This lady is doing well, but she still has a cough and shortness of breath, which is holding up her discharge. PHYSICAL EXAMINATION: VITAL SIGNS: She is afebrile. CHEST: Clear. CARDIAC: Normal. IMPRESSION: 1. Bronchitis. 2. Shortness of breath. PLAN: Increase activity and she is being assessed by Pulmonology. MMODL / IJN: [id number] /
--- NOTE | 2024-10-12 02:20 | PN ---
PROGRESS NOTE DATE OF SERVICE: 10/09/2024 CHIEF COMPLAINT: Ventral wall hernia with chronic cough. HISTORY OF PRESENT ILLNESS: This lady is doing fairly well, and they will not let her go home due to her cough and needing to have a bowel movement. REVIEW OF SYSTEMS: She has not had any abdominal pain, fever, chills, etc. PHYSICAL EXAMINATION: VITAL SIGNS: Normal. CHEST: Clear. CARDIAC: Normal. ABDOMEN: Bowel sounds are present. IMPRESSION: Status post ventral herniorrhaphy with bronchitis. PLAN: No change in program. MMODL / IJN: [id number] /
--- NOTE | 2024-10-12 02:35 | PN ---
PROGRESS NOTE DATE OF SERVICE: 10/10/2024 PHYSICAL EXAMINATION: CHEST: Clear. CARDIAC: Normal. ABDOMEN: Soft, nontender. LABORATORY STUDIES: Reveal a hemoglobin of only 8.6 and a white count of 16,700. IMPRESSION: 1. Status post ventral herniorrhaphy. 2. Cough with shortness of breath. 3. Leukocytosis. 4. Anemia. PLAN: Continue to monitor vital signs and laboratory studies. Clinically, she feels well. MMODL / IJN: [id number] /
--- NOTE | 2024-10-12 02:50 | PN ---
PROGRESS NOTE DATE OF SERVICE: 10/11/2024 CHIEF COMPLAINT: Shortness of breath and cough following ventral herniorrhaphy. HISTORY OF PRESENT ILLNESS: This lady is doing well. She has not had any significant pain. She states she still has not had a bowel movement. PHYSICAL EXAMINATION: CHEST: Clear. CARDIAC: Normal. ABDOMEN: Bowel sounds are present. IMPRESSION: 1. Status post ventral herniorrhaphy. 2. Chronic bronchitis and shortness of breath. PLAN: No change in program today from my perspective. MMODL / IJN: [id number] /
[2024-10-12 07:16] VITALS: RESP 16
--- NOTE | 2024-10-12 11:45 | P.PN ---
Subjective Progress Note Date: 10/12/24 On 10/08/2024, this patient is being seen in consultation for cough. Noted the patient is a chronic smoker and she quit smoking approximately a month ago. Her cough started back in April 2024 and the patient is having a congested cough with limited sputum production. No significant wheezing. She was experiencing some exertional dyspnea. She was treated through her primary care physician with a combination of antibiotics and bronchodilators and steroids without any much improvement. She has also undergone an outpatient CAT scan of the chest that was done on 09/03/2024 that showed no acute abnormalities. Chest x-ray from 10/04/2024 was essentially within normal limits. Noted the patient presented to the hospital with abdominal pain and the patient was found to have a ventral wall hernia with evidence of omental strangulation. Noted that she had a ventral wall hernia and this complication occurred prior related to her ongoing coughing. The hernia was not reducible. Based on that, the patient was taken to the operating room and the patient underwent a robotic ventral hernia repair with mesh and robotic umbilical hernia repair with mesh. Surgery was done on 10/06/2024 and the patient is currently postop day #2. She is currently on room air oxygen. White cell count of 10.9. Hemoglobin 9.8. Platelet count is at 443. Electrolytes are all within normal limits. A pulmonary consultation was requested accordingly. No history of any cardiac disease. No childhood asthma. No history of any environmental allergies. No exposure to any chemicals fumes or toxic respiratory m agents. No recurrent pneumonias. On 10/09/2024, the patient is being seen for a follow-up. The patient is recovering from her ventral and umbilical hernia repair. Her cough is slightly improved compared to yesterday. The patient is able to produce some sputum. I placed the patient on DuoNeb updrafts, IV Solu-Medrol and she is also on a combination of Perforomist and Pulmicort nebulized treatments twice a day. Room air pulse ox is 96%. Hemoglobin is at 9.7 with a white cell count of 13 and a platelet count of 487. The viral 4 Plex came back negative. No other new complaints otherwise for now. The patient is recovering from abdominal surgery. Cough is still present although less severe. She is afebrile. Tolerating diet. On 10/10/2024, the patient continues to have cough and it is gradually improving. She is able to expectorate some mucus. She was taken off IV Solu-Medrol which was switched to prednisone burst taper. She remains on DuoNeb the regiment [id number]. She also is on a combination of Perforomist and Pulmicort updrafts twice a day. White cell count slightly elevated today to steroids. The white cell count at 16 with a hemoglobin of 8.6 and a platelet count of 489. The viral 4 Plex was negative. The patient is on room air oxygen. Tolerating diet. No nausea or emesis. No other complaints otherwise. 10/11/2024, the patient is being seen for a follow-up. Cough is gradually subsiding. She remains on a combination performance of Pulmicort updrafts twice a day, DuoNeb the regiment 4 times a day and she is also on oral prednisone. She is also on Robitussin. White cell count is 16, hemoglobin 8.6 and a platelet count of 485. She remains on room air oxygen. No new complaints. Passing flatus. Tolerating diet. The patient is seen today October 12, 2024 in follow-up on the regular medical floor. She is currently sitting up in bed. Awake and alert in no acute distress. She still has some occasional dry nonproductive cough. No fever or chills. Maintaining good O2 saturations in the mid 90s on room air. She is afebrile. Hemodynamically stable. Working well with her incentive spirometer. Abdominal surgical sites are clean dry and well-approximated. Tolerating a regular diet. Objective - Vital Signs Vital signs: Vital Signs Temp 98.2 F 10/12/24 07:16 Pulse 76 10/12/24 09:08 Resp 16 10/12/24 08:27 BP 128/85 10/12/24 07:16 Pulse Ox 96 10/12/24 07:16 FiO2 Intake & Output 10/11/24 10/12/24 10/12/24 18:59 06:59 18:59 Intake Total 2220 2160 Balance 2219 2160 Intake: Oral 2219 2159 Other: Voiding Method Toilet Toilet # Voids 5 4 # Bowel Movements 1 - Exam GENERAL EXAM: Alert, active, 39-year-old female, on room air, comfortable in no apparent distress. HEAD: Normocephalic. EYES: Normal reaction of pupils, equal size. NOSE: Clear with pink turbinates. THROAT: No erythema or exudates. NECK: No masses, no JVD. CHEST: No chest wall deformity. LUNGS: Equal air entry with no crackles, wheeze, rhonchi or dullness. CVS: S1 and S2 normal with no audible murmur, regular rhythm. ABDOMEN: Surgical sites clean dry and well-approximated. No hepatosplenomegaly, normal bowel sounds, no guarding or rigidity. SPINE: No scoliosis or deformity SKIN: No rashes CENTRAL NERVOUS SYSTEM: No focal deficits, tone is normal in all 4 extremities. EXTREMITIES: There is no peripheral edema. No clubbing, no cyanosis. Peripheral pulses are intact. - Labs CBC & Chem 7: 10/10/24 04:24 10/06/24 03:52 Assessment and Plan Assessment: Chronic cough likely secondary to chronic bronchitis/smoking induced. Chest x- ray is within normal limits. CAT scan of the chest from August 2024 was also within normal limits. No history of any asthmatic disorder. No evidence of pneumonia. No bronchiectasis. No other comorbidities contributing to her chronic cough Ventral hernia with bowel strangulation, status post robotic repair of a ventral and umbilical hernia. The patient is postop day # 6 History of chronic smoking Plan: The patient was seen and evaluated Stable and on room air Cleared for discharge from the pulmonary standpoint Recommend Trelegy and albuterol HFA Complete a prednisone taper Could follow-up in our office for pulmonary function testing Educated regarding smoking cessation This patient was seen independently by the pulmonary nurse practitioner addressing pulmonary issues I have personally seen and examined the patient, performed the documentation and the assessment and plan as written. Number of minutes spent on the visit: 25.
[2024-10-12 13:32] VITALS: BP 137/76
--- NOTE | 2024-10-12 14:00 | P.DS ---
Providers Date of admission: 10/07/24 08:57 Expected date of discharge: 10/12/24 Attending physician: Souleymane Ivey DO Consults: 10/04/24 15:57 Consult Physician Urgent Consulting Provider: Viet Domingo Consult Reason/Comments: ventral wall hernia/pain Do you want consulting provider notified?: Yes 10/08/24 10:03 Consult Physician Routine Consulting Provider: Madhav Carpenter Consult Reason/Comments: cough Do you want consulting provider notified?: Yes Primary care physician: Viet Domingo Hospital Course: Discharge diagnosis 1. Incarcerated ventral hernia and umbilical hernia 2. Chronic bronchitis Hospital course This is a 39-year-old female who presented with complaints of pain at her ventral hernia site. Patient had been dealing with a chronic cough. CT scan of the abdomen and pelvis reported ventral wall fat-containing hernia with evidence of omental strangulation with fat stranding and trace free fluid. Additional more inferior fat-containing umbilical hernia. Patient is status post robotic ventral hernia repair with mesh and robotic umbilical hernia repair with mesh. Patient's pain is controlled. She is having bowel movements. She is tolerating diet. She is afebrile. She has been up and ambulating. She has been cleared by pulmonary service for discharge. Patient is stable for discharge. Please refer to chart for any further details. Physician Premium Representative note has been reviewed by physician. Signing provider agrees with the documented findings, assessment, and plan of care. Patient Condition at Discharge: Stable Plan - Discharge Summary Discharge Rx Participant: Yes New Discharge Prescriptions: New HYDROcodone/APAP 5-325MG [[place] 5-325] 1 tab PO Q6HR PRN 3 Days #12 tab PRN Reason: Pain methocarbamoL [Robaxin] 500 mg PO TID PRN #9 tab PRN Reason: Muscle Pain Docusate [Colace] 100 mg PO BID #30 capsule polyethylene glycoL 3350 [Miralax] 17 gm PO DAILY #7 packet Continue hydrOXYzine HCL [Atarax] 25 mg PO TID PRN PRN Reason: Itching Pantoprazole [Protonix] 40 mg PO DAILY Discharge Medication List Pantoprazole [Protonix] 40 mg PO DAILY 10/04/24 [History] hydrOXYzine HCL [Atarax] 25 mg PO TID PRN 10/04/24 [History] Docusate [Colace] 100 mg PO BID #30 capsule 10/12/24 [Rx] HYDROcodone/APAP 5-325MG [[place] 5-325] 1 tab PO Q6HR PRN 3 Days #12 tab 10/12/24 [Rx] methocarbamoL [Robaxin] 500 mg PO TID PRN #9 tab 10/12/24 [Rx] polyethylene glycoL 3350 [Miralax] 17 gm PO DAILY #7 packet 10/12/24 [Rx] Follow up Appointment(s)/Referral(s): Viet Domingo MD [Primary Care Provider] - 1-2 days Souleymane Ivey DO [Medical Doctor] - 1 Week Madhav Carpenter MD [STAFF PHYSICIAN] - 1 Week Activity/Diet/Wound Care/Special Instructions: No driving while taking [place] No lifting over 10 pounds You may shower. No soaking or tub baths for 2 weeks Very light activity until you are reevaluated at your follow up appointment with your surgeon Discharge Disposition: HOME SELF-CARE
[2024-10-12 16:18] VITALS: PULSE 78
--- NOTE | 2024-10-14 03:19 | PN ---
PROGRESS NOTE DATE OF SERVICE: 10/12/2024 CHIEF COMPLAINT: Status post umbilical herniorrhaphy. HISTORY OF PRESENT ILLNESS: This lady is doing fairly well, but she had this cough and shortness of breath. LABORATORY DATA: Hemoglobin is down to 8.6, white count 16,700. PHYSICAL EXAMINATION: CHEST: Clear. CARDIAC: Normal. ABDOMEN: Soft, nontender. IMPRESSION: 1. Status post umbilical herniorrhaphy. 2. Leukocytosis. 3. Anemia. PLAN: Discharge to home when surgery has indicated that she may leave. MMODL / IJN: [id number] /
== END 2024-10-12 17:01 | disposition home or self-care (01) | DRG 227 ==
LOC: EC 11:40 → 4SSUR 15:59 → OBSVTOIN 10-07 08:57
PROVIDERS: ADMIT Surgery; ATTEND Surgery
PROC: 0WUF4JZ Supplement Abdominal Wall with Synthetic Substitute, Percutaneous Endoscopic Approach (ICD-10-PCS; principal; 2024-10-06 14:40)
PROC: 0WJF4ZZ Inspection of Abdominal Wall, Percutaneous Endoscopic Approach (ICD-10-PCS; principal; 2024-10-06 14:40)
PROC: 8E0W4CZ Robotic Assisted Procedure of Trunk Region, Percutaneous Endoscopic Approach (ICD-10-PCS; principal; 2024-10-06 14:40)
DX: K43.6 Other and unspecified ventral hernia with obstruction, without gangrene (principal); K42.0 Umbilical hernia with obstruction, without gangrene; D64.9 Anemia, unspecified; F17.209 Nicotine dependence, unspecified, with unspecified nicotine-induced disorders; R31.9 Hematuria, unspecified; F32.A Depression, unspecified; J42 Unspecified chronic bronchitis; T38.0X5A Adverse effect of glucocorticoids and synthetic analogues, initial encounter; D72.829 Elevated white blood cell count, unspecified; Z11.52 Encounter for screening for COVID-19; Z28.21 Immunization not carried out because of patient refusal; Z79.899 Other long term (current) drug therapy; Z88.0 Allergy status to penicillin; Z71.6 Tobacco abuse counseling
CPT/HCPCS: 36415; 71045; 71046; 74177; 80048; 80053; 81001; 81025; 82150; 83605; 83690; 85025; 85027; 87636; 94640; 96361; 96374; 96375; 96376; 99285